=== PATIENT | female | born 1990 | race Caucasian/White ===

== ENCOUNTER 2016-07-12 07:13 | Observation (INO) | payer OTHER ==
[~2016-07-12] VITALS: Ht 162.6 cm; Wt 103.5 kg
[~2016-07-12 07:13] MED LIST: ALBU2.5I INH; BENZ100 PO; NEBUMIS6 INH; PRED20 PO; VENTAER INH; ZITH250T PO
[2016-07-12] MEDS ORDERED: ceFAZolin 2 GM PREMIX 50 ML ONE (07:36)
[2016-07-12] MEDS ORDERED: SODIUM CHLORID 0.9% 500 ML IV PRN (07:45)
[2016-07-12] MEDS ORDERED: INSULIN HUMAN REGULAR 1,000 UNITS/10 ML VIAL SQ PRN (07:45)
[2016-07-12] MEDS ORDERED: ceFAZolin 2 GM PREMIX 50 ML IV SCH (07:45)
[2016-07-12] MEDS ORDERED: POVIDONE IODINE 5% (ANTISEPSIS KIT) 4 APPLICATIONS EACH NARE PRN (07:45)
[2016-07-12] MEDS ORDERED: METOPROLOL TARTRATE 25 MG TAB PO PRN (07:45)
[2016-07-12] MEDS ORDERED: CHLORHEXIDINE GLUCONATE 2 % 1 PACK (2 CLOTHS) TOPICAL PRN (07:45)
[2016-07-12] MEDS ORDERED: LACTATED RINGER'S 1000 ML IV PRN (07:45)
[2016-07-12 07:49] VITALS: BP 115/71; PULSE 80; RESP 16; TEMP 98.6; O2SAT 98
[2016-07-12] MEDS ORDERED: FAMOTIDINE 20 MG/2 ML VIAL ONE (08:48)
[2016-07-12] MEDS ORDERED: LIDOCAINE 1%/EPINEPHrine 1:100,000 SOLN 50 ML VIAL ONE (09:56)
[2016-07-12] MEDS ORDERED: MIDAZOLAM HCL 2 MG/2 ML VIAL ONE (10:06)
[2016-07-12] MEDS ORDERED: ACETAMINOPHEN 1000 MG/100 ML VIAL IV ONE (10:06)
[2016-07-12] MEDS ORDERED: fentaNYL CITRATE 250 MCG/5 ML AMP ONE ×2 (10:07→14:54)
[2016-07-12] MEDS ORDERED: RESP: ALBUTEROL 2.5 MG/3 ML NEB (PRN) ONE (10:07)
[2016-07-12] MEDS ORDERED: PROPOFOL 200 MG/20 ML AMP IV ONE (12:00)
[2016-07-12] MEDS ORDERED: NEOSTIGMINE 3 MG/3 ML SYR IV ONE (12:00)
[2016-07-12] MEDS ORDERED: ONDANSETRON HCL 4 MG/2 ML VIAL IV PUSH ONE (12:00)
[2016-07-12] MEDS ORDERED: LACTATED RINGER'S 1000 ML INJ 2,000 ML IV ONE (12:00)
[2016-07-12] MEDS ORDERED: HYDROmorphone HCL PF 2 MG/ML VIAL ONE (12:04)
[2016-07-12] MEDS ORDERED: ceFAZolin INJ 1,000 MG VIAL ONE ×2 (13:25→13:26)
[2016-07-12] MEDS ORDERED: ceFAZolin INJ 1,000 MG VIAL IV ONE (13:26)
[2016-07-12] MEDS ORDERED: MORPHINE SULFATE 4 MG/ML INJ ONE (14:54)
[2016-07-12] MEDS ORDERED: *morphine SULFATE 8 MG/ML PERIprocedure ONLY ONE (15:19)
[2016-07-12] MEDS ORDERED: LACTATED RINGER'S 1000 ML INJ 1,000 ML IV SCH (18:45)
[2016-07-12] MEDS: HYDROmorphone HCL PF 1 MG/ML VIAL IV PRN (18:49)
[2016-07-12] MEDS ORDERED: ONDANSETRON HCL 4 MG/2 ML VIAL IV PUSH PRN (19:00)
[2016-07-12 20:00] VITALS: BP 130/72; PULSE 66; RESP 17; O2SAT 96
[2016-07-12 21:27] VITALS: O2SAT 95
[2016-07-12] MEDS: HYDROmorphone HCL 4 MG TAB PO PRN (22:44)
[2016-07-13] VITALS: BP 111/61; PULSE 69; RESP 17; TEMP 97.2; O2SAT 96
[2016-07-13] MEDS: HYDROmorphone HCL PF 1 MG/ML VIAL IV PRN ×3 (03:51→17:05)
[2016-07-13 04:00] VITALS: BP 108/60; PULSE 79; RESP 18; TEMP 97; O2SAT 96
[2016-07-13 08:00] VITALS: BP 117/68; PULSE 82; RESP 16; TEMP 97.2; O2SAT 96
[2016-07-13] MEDS: HYDROmorphone HCL 4 MG TAB PO PRN ×3 (08:21→14:58)
[2016-07-13 12:00] VITALS: BP 123/72; PULSE 83; RESP 18; TEMP 97.4; O2SAT 98
[2016-07-13 16:00] VITALS: BP 122/59; PULSE 84; RESP 18; TEMP 98.5; O2SAT 97
--- NOTE | 2016-07-13 16:43 | PD.PLAS.PN ---
Subjective Remarks Patient doing well. More pain Right side. No bleeding. No fever, mild nausea, now ok, Food intake good. Breasts both sides soft. edema +, no hematoma. OK to discharge today. OK to shower at home. SHAAN to stay 1 week approx. Tuesday - [facility] Vital Signs Date Time Temp Pulse Resp B/P Pulse Ox O2 Delivery O2 Flow Rate FiO2 07/13/16 12:00 97.4 83 18 123/72 98 07/13/16 08:00 97.2 82 16 117/68 96 07/13/16 04:00 97.0 79 18 108/60 96 07/13/16 00:00 97.2 69 17 111/61 96 07/12/16 21:27 95 21 07/12/16 20:00 66 17 130/72 96 07/12/16 17:00 97.9 86 16 120/64 95 Room Air I/O 07/12/16 07/12/16 07/12/16 07/13/16 07/13/16 07/13/16 07:00 15:00 23:00 07:00 15:00 23:00 Intake Total 2100 ml 547 ml 720 ml 2520 ml Output Total 500 ml 285 ml 2275 ml 1450 ml 300 ml Balance 1600 ml 262 ml -1555 ml 1070 ml -300 ml Intake Oral 240 ml 720 ml 720 ml IV Total 307 ml 1800 ml Other 2100 ml Output Urine Total 150 ml 2225 ml 1450 ml 300 ml Drainage Total 135 ml 50 ml Estimated Blood Loss 50 ml Other 450 ml Bethel Hahn MD Jul 13, 2016 16:43
--- NOTE | 2016-07-19 08:17 | MP ---
cc: MAGY HUSSEIN M.D. DATE OF SURGERY: 07/12/2016. PREOPERATIVE DIAGNOSIS: Bilateral macromastia with asymmetry right side approximately 20% to 25% larger than the left. POSTOPERATIVE DIAGNOSIS: Bilateral macromastia with asymmetry right side approximately 20% to 25% larger than the left. OPERATION: Bilateral reduction mammoplasty SURGEON: Magy Hussein M.D. ANESTHESIA: General. INDICATIONS FOR THE PROCEDURE: 25-year-old black female with very large breasts approximately 1800 grams volume on the right and about 1400 grams volume on the left. Preoperatively the patient underwent a detailed explanation of the surgery and the wide spectrum design with diagrams explaining the inferior pedicle, de-epithelialization overall reduction and volume to be left behind and possibility of risks and complications were discussed in detail. The possibility of bleeding, damage to the neurovascular structures including loss of nipple-areolar sensation, possible loss of vascularity of the flap, postoperative hematoma, infection, wound dehiscence, wound necrosis, open wound care and further surgeries, possible chronic pain and keloid formation, et cetera were pointed out, the overall result to be expected and the long-term outcome were discussed. She also understands that in the future, if she needs any mastopexy if needed in future may be most likely not covered by her insurance. The patient was also explained the overall nature of the anesthesia, the length of operation, use of Holguin catheter, sequential compression devices, heating blankets and possibility of complications with anesthesia, possible reactions to medications and also postoperative issues such as DVT and lung atelectasis were explained. The patient understood also that in the long run she will need baseline mammograms to establish the new appearance of breast tissue as and when appropriate. DESCRIPTION OF THE PROCEDURE IN DETAIL: The patient was brought to the operating room and was in the supine position. Anesthesia was started. Prep and drape was done. IV antibiotics had been given. The preoperative markings were reinforced and the tumescent solution of lidocaine with epinephrine and saline and additional epinephrine was used. The inferior pedicle outline including the lateral and medial rings were de-epithelialized. The upper Gonzalez pattern flaps were raised after using saline tumescent solution to allow hemostasis and also hydrodissection and the flaps were kept at approximately 2 cm thick. The breast mound was then reduced starting from the lateral aspect lifting the chest wass portions of the bra roll fatty tissue and breast tissue from lateral to medial aspect clearing the base up to the anterior axillary line and then the lateral de-epithelialized dermis was from the breast tissue and preserved, continuing with the rest of the pedicle. The breast tissue reduction was carried out to thin out lateral superior and a small portion of the medial breast tissue as well in a crescentic excision. The base pedicle was maintained to slightly over a cm at the widest distance. Hemostasis was completed. The flaps were joined together and were brought down to the midportion of the inferior pedicle in appropriate location. The Nico-Toth drains were used. The flaps were sutured with internal Vicryl and cutaneous skin stitches. The cutaneous Prolene sutures, the nipple-areolar complexes were exteriorized in a symmetric position as well and sutured with Vicryl and Prolene as well. The total tissue removed on the right side was 1250 grams. Total tissue removed on the left side was 850 grams. The intraoperative blood loss was approximately 75 to 100 cc including the blood loss within the tissue removed. The patient remained stable. No complications. signed, not fully reviewed MD TINY James/YANELY /7:21 PM /8:03 AM MARK
== END 2016-07-13 19:48 | disposition home or self-care (01) ==
LOC: HSDC 07:13 → HOCB 18:14
PROVIDERS: ADMIT Plastic Surgery; ATTEND Plastic Surgery
DX: N62 Hypertrophy of breast (principal); N64.4 Mastodynia; N60.12 Diffuse cystic mastopathy of left breast; N60.11 Diffuse cystic mastopathy of right breast; M54.9 Dorsalgia, unspecified; J45.909 Unspecified asthma, uncomplicated; K21.9 Gastro-esophageal reflux disease without esophagitis; F17.210 Nicotine dependence, cigarettes, uncomplicated; E66.9 Obesity, unspecified; Z68.39 Body mass index [BMI] 39.0-39.9, adult
CPT/HCPCS: 00402; 19318; 88305; 94664; G0378; J0131; J0690; J1170; J2250; J2270; J2405; J2710; J3010; J7120; J7613

== ENCOUNTER 2016-08-08 12:32 | Emergency (ER) | payer OTHER ==
[~2016-08-08] VITALS: Ht 162.6 cm; Wt 99.0 kg
[~2016-08-08 12:32] MED LIST changes: -ALBU2.5I INH; -BENZ100 PO; -NEBUMIS6 INH; -PRED20 PO; -ZITH250T PO
[2016-08-08 12:38] VITALS: BP 106/70; PULSE 81; RESP 17; TEMP 98.2; O2SAT 97
== END 2016-08-08 15:37 | disposition left against medical advice (07) ==
LOC: PHED 12:32
DX: R52 Pain, unspecified (principal); Z53.29 Procedure and treatment not carried out because of patient's decision for other reasons
CPT/HCPCS: 99281